=== PATIENT | male | born 1960 | race Caucasian/White ===

== ENCOUNTER 2016-11-18 09:12 | Emergency (ER) | payer MEDICAID ==
[2016-11-18 09:27] VITALS: BP 119/72
[2016-11-18] MEDS ORDERED: Furosemide 40 MG/4 ML VIAL IVPUSH ONE (10:00)
[2016-11-18] MEDS ORDERED: Sodium Polystyrene Sulfonate 15 GM/60 ML Susp 60 ML Bot PO ONE (11:11)
--- NOTE | 2016-11-18 11:11 | CR ---
INDICATION: Short of breath, weakness, CHF, atrial fibrillation. CHEST: AP portable upright view of the chest 11/18/2016 was compared with 12/07 and 06/11/2013, revealing unipolar pacemaker lead, which appears to be unchanged in position. The heart is enlarged. The aorta is tortuous and calcified. A definite consolidating pneumonia or effusion was not identified. Lungs appear to be hyperaerated, suggesting COPD. Overlying EKG leads are noted. IMPRESSION: 1. No definite acute process. 2. COPD. 3. ASHD with cardiomegaly and unipolar pacemaker unchanged in position. MTDD
--- NOTE | 2016-11-24 11:10 | ER ---
DATE SEEN: 11/18/2016 TIME SEEN: The patient was seen at 0925 hours. HISTORY OF PRESENT ILLNESS: This 56-year-old gentleman comes in with history of anorexia, weakness, shortness of breath, and wheezing. He has onset of atrial fibrillation 11/14/2016. This was converted. He had atrial fibrillation in [place] converted in 2016. He has an ICD and has not had recent defibrillator go off. He has a large abdominal hernia that has "gone bad". He has had edema 2+ lower extremities, with wheezing, chronic obstructive lung disease. Smokes 1 1/2 packs of cigarettes since he has been a teenager, 50 plus pack years of smoking. He had DuoNeb prior to arrival. It made a slight difference. PAST MEDICAL HISTORY: He has known diabetes, GERD, he is on potassium supplements, AAA with repair, cardiomyopathy, congestive heart failure, dyslipidemia, hypertension, peripheral vascular disease, aortic insufficiency, hiatus hernia, end-stage renal disease, and chronic low back pain. MEDICATIONS: 1. Warfarin 1.5 mg daily. 2. Tylenol. 3. Lasix 80 mg daily. 4. Ferrous sulfate. 5. Metoprolol succinate. 6. Metoprolol-XL 100 mg daily. 7. Omeprazole 20 mg daily. 8. Simvastatin 10 mg daily. 9. Sitagliptin 50 mg daily. 10.Metolazone as directed 2.5 mg. 11.Magnesium oxide 400 mg daily. 12.Lisinopril 2.5 mg daily. FAMILY HISTORY: Mother of myocardial infarction and father , age 81, with atrial fibrillation, diabetes, and congestive heart failure. Brother and sister ; brother had a AAA at age 54 in 2008. Sister of drug abuse at age 48. One sister had colon cancer. One brother of HIV. PHYSICAL EXAMINATION: VITAL SIGNS: Blood pressure 119/72, heart rate 95 and regular, respirations 20, and oxygen saturation 98%. GENERAL: Resting shortness of breath. He has marked [place] gra[place]'s feet. LUNGS: Has moderate rales in lungs. Coarse breath sounds. He has audible rales heard, but just the same without a stethoscope. Moderate accessory muscle use. Moderate tracheal tug. Mild intercostal retraction. No respiratory fatigue noted. No chest wall discomfort. HEART: S1 and S2. No murmur. No irregularity of rhythm. Heart rate 102. : Bladder scan demonstrates 172 mL. EXTREMITIES: Without edema. Decreased muscle mass noted to upper and lower extremities. LABORATORY STUDIES: Chest x-ray shows cardiomegaly but is less than it was on 12/07/2014 when he had congestive heart failure, myocardial infarction noted. EMERGENCY DEPARTMENT COURSE: Did flush with 40 mg IV push, 15 g of Kayexalate. He has elevated potassium. STACIA score +1 positive for congestive heart failure, +2 positive for hypertension, 0 for age, +2 for diabetes and peripheral neuropathy, and +2 for vascular, so it is at least a score of 6. For this reason, he is appropriately on his anticoagulants. White count is not elevated at 10,400, this alone not suggestive of pneumonia, PMNs 77, bands 5, 8 lymphocytes, and hemoglobin 14.2. The etiology for bandemia indeterminate. D-dimer was 1000. Sodium 130, potassium 5.6, chloride 95, CO2 of 25, BUN 46, creatinine 3.1, BUN and creatinine ratio 15, and reactive glucose elevation 193. AST 36, ALT 39. BNP is 2013. Urinalysis; rare bacteria. The patient has multiple problems. He has treated congestive heart failure. He has chronic obstructive lung disease with exacerbation. He has clubbing of his fingers. He has tracheal tug and accessory muscle use, which mirrors his chronic obstructive lung disease. The COPD seemed to improve with O2 and IV Lasix. He had wheeze that improved. The EKG showed lateral wall ischemia. T- wave inversion in lead I, III, V4, 5, 6, aVL was unchanged since 12/16/2014 and also T-waves isoelectric in lead II. Has new ST elevation in V1, 2, 3, mild. There is no evidence for myocardial infarction. Troponin is normal. He has mild atrial fibrillation that seems to be controlled with the medication. He is on Digitalis plus beta-jayro. Congestive heart failure, improved with the diuresis. He has elevated creatinine and BUN that reflect stage 4 acute kidney disease. The magnesium is appropriate, not elevated. He has chronic alcoholism with mild elevation of liver enzymes. The bandemia, etiology indeterminate. No suggestion of major infection. Discussed the patient's status with his doctor, Dr. Reid, and we felt that perhaps the patient's congestive heart failure might improve with using increasing hydralazine, but increasing Lasix might be problematic. Also he has a history of elevated potassium. Consequently, he will be started on Kayexalate 15 g b.i.d. for 3 days and follow up with a BMP on 11/21/2016. The patient is anticoagulated adequately. It was not felt that the patient had infection. I have spoken to the casing running machine tender, Deb Anderson. She is going to come back to pick him up and take him home today. The patient was markedly improved before he left. Also, Radha Marvin, [facility] is to follow up to have a blood test on Monday. Dr. Reid has been informed. He was concerned that the patient might have bladder outlet obstruction. We checked and ruled out bladder outlet obstruction. He did have 172 mL on bladder scan, and he is able to pass urine. UA was clear, urine protein 100, moderate occult blood, rare squamous epithelial cells, rare wbc's noted, rule out urinary tract infection. Most significant therapeutic intervention is his increased potassium. Follow up on Monday. He has previously had abdominal surgery in [facility] and has significant midline scar from the xiphoid to the symphysis, which reflects some mild diastasis. He has ICD, which is stable. His atrial fibrillation is under control. He has not had any firing recently. Diabetes is stable. Isosorbide was used to decrease his congestive heart failure and seemed to be helpful. If his pressure improved or if his status improved, perhaps even this could be increased to 60 mg from 30 mg. GERD. Previously documented TIA. AAA with cardiomyopathy, congestive heart failure, dyslipidemia, hypertension, pacemaker aortic insufficiency. /[id number] ALBERTINA/NAZARIO
--- NOTE | 2016-12-14 07:55 | ER ---
DATE SEEN: 11/18/2016 This 56-year-old man, who has had the following diagnoses; 1. Shortness of breath secondary to chronic obstructive pulmonary disease and exacerbation of congestive heart failure. 2. Coronary artery disease, status post myocardial infarction, atrial fibrillation, digitalized ICD placement, status post previous transient ischemic attack, diabetes, and abdominal aortic aneurysm. 3. Hypertension. 4. Gastroesophageal reflux disease. 5. Dyslipidemia. 6. Bandemia, etiology indeterminate. 7. Hyperkalemia, secondary to chronic kidney disease. Creatinine is 3.1. 8. Chronic kidney disease with history of bladder outlet obstruction. No evidence for bladder outlet obstruction today. Microhematuria, etiology possibly secondary to prostatism, large prostate. 9. Anticoagulation. He has a CHADS2 score of 6, positive atrial fibrillation. 10.Abdominal diastasis, etiology for this is a previous midline surgery performed at [facility], probable mesh placement for posterior mild diastasis. 11.Obesity. 12.Diabetes. /[id number] ALBERTINA/NAZARIO
== END 2016-11-18 12:05 | disposition home or self-care (01) ==
LOC: FB.ED 09:12
DX: J44.1 Chronic obstructive pulmonary disease with (acute) exacerbation (principal); E11.9 Type 2 diabetes mellitus without complications; K21.9 Gastro-esophageal reflux disease without esophagitis; K44.9 Diaphragmatic hernia without obstruction or gangrene; I13.2 Hypertensive heart and chronic kidney disease with heart failure and with stage 5 chronic kidney disease, or end stage renal disease; N18.6 End stage renal disease; Z79.899 Other long term (current) drug therapy; I50.9 Heart failure, unspecified; E78.5 Hyperlipidemia, unspecified; I73.9 Peripheral vascular disease, unspecified; M54.5 Low back pain; G89.29 Other chronic pain; Z79.01 Long term (current) use of anticoagulants; R68.3 Clubbing of fingers; I48.91 Unspecified atrial fibrillation; F10.20 Alcohol dependence, uncomplicated; R79.89 Other specified abnormal findings of blood chemistry; D72.825 Bandemia; E87.6 Hypokalemia; Z86.73 Personal history of transient ischemic attack (TIA), and cerebral infarction without residual deficits; Z95.0 Presence of cardiac pacemaker
CPT/HCPCS: 36415; 71010; 80053; 81001; 83735; 83880; 84484; 85025; 85379; 93005; 96374; 99284; J1940

== ENCOUNTER 2016-11-20 03:35 | Emergency (ER) | payer MEDICAID ==
[2016-11-20] MEDS ORDERED: Sodium Chloride 0.9% 10 ML Syringe FLUSH PRN (04:18)
[2016-11-20] MEDS ORDERED: Furosemide 40 MG/4 ML VIAL IVPUSH ONE (05:20)
--- NOTE | 2016-11-20 06:09 | ER ---
DATE SEEN: 11/20/2016 CHIEF COMPLAINT: Decreased urine output. HISTORY OF PRESENT ILLNESS: This is a 56-year-old male, who complains of decreased urine output since yesterday. He denies any pain. He has a history of congestive heart failure, chronic kidney disease, atrial fibrillation, previously been exacerbated and he was here in the ER just a day ago with shortness of breath. His dose of Lasix was increased to 120 mg in 2 divided doses daily. Today, he has no chest pain or shortness of breath. He has chronic leg swelling. REVIEW OF SYSTEMS: No fever or chills. No headaches. MEDICATIONS: Reviewed. ALLERGIES: Reviewed. SOCIAL HISTORY: Reviewed. Please see the nurse's notes. PHYSICAL EXAMINATION: VITAL SIGNS: Blood pressure is normal. Pulse 121, temperature 95.0. EAR, NOSE, AND THROAT: Negative. NECK: Mild JVD. CARDIOVASCULAR: Irregular. He has pedal edema. ABDOMEN: Distended with a hernia on the right umbilical area, easily reducible. LUNGS: Wheezing and rales in the bases. LABORATORY DATA: White cell count is normal. Sodium 133, potassium 3.8, creatinine 3.0, BNP 1740. IMPRESSION: 1. Congestive heart failure exacerbation. 2. Chronic renal disease. 3. Atrial fibrillation. PLAN: 40 mg of Lasix x1 dose. Discontinue Kayexalate. Follow up with PCP on Monday. Return to the ED with worsening symptoms. /[id number] SANTIAGO/NAZARIO
[2016-11-20 06:47] VITALS: BP 116/73
== END 2016-11-20 06:40 | disposition home or self-care (01) ==
LOC: FB.ED 03:35
DX: I50.9 Heart failure, unspecified (principal); N18.9 Chronic kidney disease, unspecified; I48.91 Unspecified atrial fibrillation; R39.198 Other difficulties with micturition; K42.9 Umbilical hernia without obstruction or gangrene
CPT/HCPCS: 36415; 51798; 80048; 83880; 85025; 96374; 99284; J1940; J7050

== ENCOUNTER 2016-12-01 13:06 | Observation (INO) | payer MEDICAID ==
[2016-12-01] MEDS ORDERED: Albuterol/Ipratropium 3.0-0.5 MG/3 ML Neb Soln NEB ONE (13:17)
[2016-12-01] MEDS ORDERED: Furosemide 40 MG/4 ML VIAL IVPUSH ONE ×2 (13:19→16:47)
--- NOTE | 2016-12-01 13:39 | EDM.PDOC ---
[id number]: SOB, FLUID BUILD UP Time Seen by Provider: 12/01/16 13:06 Source: Reports: Patient, Family, custodial records, RN History Limitations: Reports: Physical impairment - History of Present Illness INITIAL COMMENTS - FREE TEXT/NARRATIVE: 56 years old w m with a history of CHF, abd. wall hernia, morbid obesity, come the the ed with his caregiver to the ed due to "fluids building up" bilat lower extremities and ABDOMEN. Pt is on laxix with minimal improvement. Pt dose not complain of SOB at rest in sitting position. No C/P Symptom Onset Date: 11/26/16 Symptom Onset Time: 08:00 Timing/Duration: Reports: Day(s):, Getting worse Severity: moderate Location, General: Reports: chest, abdomen, lower extremity, left, lower extremity, right Quality: Reports: Dull, Other (Fullness) - Related Data Allergies/ADRs: Allergies Allergy/AdvReac Type Severity Reaction Status Date / Time No Known Allergies Allergy Verified 12/01/16 15:48 Home Meds: Home Meds Simvastatin [Zocor] 10 mg PO BEDTIME 06/09/13 [History] Isosorbide Mononitrate [Imdur] 30 mg PO DAILY #90 tab.er 06/14/13 [Rx] Ferrous Sulfate 325 mg PO WITHBREAKFAST 12/07/14 [History] Furosemide [Lasix] 80 mg PO BID@08,14 12/07/14 [History] Metoprolol Succinate [Toprol XL] 200 mg PO DAILY@0800 12/07/14 [History] Omeprazole 20 mg PO DAILY 12/07/14 [History] SitaGLIPtin [Januvia] 50 mg PO DAILY 12/07/14 [History] Magnesium Oxide [Magnesium] 400 mg PO DAILY 11/18/16 [History] Warfarin [Coumadin] 1.5 mg PO DAILY 11/18/16 [History] Albuterol/Ipratropium [DuoNeb 3.0-0.5 MG/3 ML] 1 inhalation IH QID 11/20/16 [ History] Digoxin [Digoxin] 125 mcg PO Q48H 11/20/16 [History] Metoprolol Succinate 100 mg PO DAILY@1700 11/20/16 [History] hydrALAZINE HCl [Hydralazine HCl] 10 mg PO BIDMEALS 11/20/16 [History] Calcitriol [Rocaltrol] 0.25 mcg PO MOWEFR 12/01/16 [History] Cholecalciferol (Vitamin D3) [Vitamin D3] 1,000 unit PO DAILY 12/01/16 [History] Metolazone [Zaroxolyn] 1 tab PO ASDIRECTED PRN 12/01/16 [History] Past Medical History Cardiovascular History: Reports: Afib, Aneurysm, CAD, Heart Failure, High cholesterol, Hypertension Other Cardiovascular History: converted on metoprolol Respiratory History: Reports: COPD Other Respiratory History: Uses O2 @ hs. 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 Endocrine/Metabolic History: Reports: Diabetes, type II Hematologic History: Reports: Iron deficiency - Infectious Disease History Infectious Disease History: Reports: Chicken pox, Measles, Mumps - Past Surgical History HEENT Surgical History: Reports: Cataract surgery Other HEENT Surgeries/Procedures: bilat cataract surgery Cardiovascular Surgical History: Reports: AAA repair GI Surgical History: Reports: Hernia repair/other Male Surgical History: Reports: None Social & Family History - Family History Family Medical History: Noncontributory - Tobacco Use Smoking Status *Q: Current Every Day Smoker Years of Tobacco use: 40 Packs/Tins Daily: 0.5 Used Tobacco, but Quit: No Second Hand Smoke Exposure: No - Caffeine Use Caffeine Use: Reports: Coffee, Soda - Alcohol Use Days Per Week of Alcohol Use: 0 - Recreational Drug Use Recreational Drug Use: No ED ROS GENERAL - Review of Systems Review Of Systems: See Below Constitutional: Reports: weakness, weight gain HEENT: Reports: No symptoms Respiratory: Reports: Shortness of Breath Cardiovascular: Reports: Dyspnea on exertion, Edema, Orthopnea, Palpitations Endocrine: Reports: no symptoms GI/Abdominal: Reports: Abdominal pain (chronic) : Reports: no symptoms Musculoskeletal: Reports: other (legswelling) Skin: Reports: no symptoms Neurological: Reports: No Symptoms Psychiatric: Reports: No symptoms Hematologic/Lymphatic: Reports: no symptoms Immunologic: Reports: no symptoms ED EXAM, GENERAL - Physical Exam Exam: See Below Exam Limited By: Physical impairment General Appearance: alert, WD/WN, moderate distress Eye Exam: bilateral eye: normal inspection Ears: normal external exam, normal canal Ear Exam: bilateral ear: auricle normal Nose: normal inspection, normal mucosa Throat/Mouth: Normal lips, Normal oropharynx Head: atraumatic, normocephalic Neck: normal inspection, supple, non-tender, full range of motion Respiratory/Chest: respiratory distress (mild), wheezing Cardiovascular: JVD, irregularly irregular GI/Abdominal: normal bowel sounds, distended (abdominal wall hernia) (Male) Exam: Deferred Rectal (Males) Exam: Deferred Back Exam: decreased range of motion, other (Anasarca) Extremities: pedal edema, slow capillary refill, leg pain, limited range of motion Neurological: alert, oriented, CN II-XII intact Psychiatric: normal affect, normal mood Skin Exam: Warm, Dry, Intact, Normal color Lymphatic: no adenopathy EKG INTERPRETATION EKG Date: 12/01/16 Time: 15:15 Rate (beats/min): 83 [place]: normal P-wave: absent QRS: normal ST-T: normal QT: normal Comparison: NA - no prior EKG Course - Vital Signs Text/Narrative:: 56 years old w m with a history of CHF, abd. wall hernia, morbid obesity, come the the ed with his caregiver to the ed due to "fluids building up" bilat lower extremities and ABDOMEN. Pt is on lasix with minimal improvement. Pt dose not complain of SOB at rest in sitting position. No C/P, was seen by the [facility]. 2-3 days ago PE: Exp wheezes, abd. wall hernia(old) pitting edema lower extr up to lower abdomen, anasarka Labs: Cr. 2.9, BUN 65 Na 122. INR 2.09 (in warfarin) Imaging: CXR: CHF with enlarged HS Impression: CHF, A fib, Abd. wall hernia, Cardiac asthma, PVD Tx: Duoneb, Lasix. Reexam: Minimally improved Consultation: Dr. Stubbs acceptd the pt for admission/Observation. Plan: Admit for OBS to telemetry Addendum: Dr. Cantu recommended now to transfere to patient to [facility] Consultation: Dr. Lzeama, Hospitalist, accepted the pt for transfer and further care Plan: Transfer to [facility] by EMS Last Recorded V/S: Last Vital Signs Temp 36.9 C 12/01/16 17:54 Pulse 97 12/01/16 17:54 Resp 20 12/01/16 17:54 BP 116/69 12/01/16 17:54 Pulse Ox 96 12/01/16 17:54 - Orders/Labs/Meds Labs: Laboratory Tests 12/01/16 12/01/16 12/01/16 Range/Units 13:25 13:25 13:25 WBC 8.3 (4.5-12.0) X10-3/uL RBC 5.13 (4.30-5.75) x10(6)uL Hgb 14.0 (11.5-15.5) g/dL Hct 42.6 (30.0-51.3) % MCV 83.0 (80-96) fL MCH 27.3 L (27.7-33.6) pg MCHC 32.8 (32.2-35.4) g/dL RDW 16.5 H (11.5-15.5) % Plt Count 190 (125-369) X10(3)uL MPV 10.5 H (7.4-10.4) fL Add Manual Diff Yes Neutrophils % (Manual) 72 (46-82) % Band Neutrophils % 1 (0-6) % Lymphocytes % (Manual) 21 (13-37) % Monocytes % (Manual) 6 (4-12) % Anisocytosis Few PT 21.0 H (8.7-11.1) INR 2.05 H (0.89-1.13) Sodium 122 L (135-145) mmol/L Potassium 4.2 (3.5-5.3) mmol/L Chloride 90 L (100-110) mmol/L Carbon Dioxide 25 (23-29) mmol/L BUN 62 H (5-20) mg/dL Creatinine 2.9 H* (0.6-1.3) mg/dL Est Cr Clr Drug Dosing TNP Estimated GFR (MDRD) 22 L (>60) BUN/Creatinine Ratio 21.4 H (9-20) Glucose 162 H (80-116) mg/dL Calcium 8.5 L (8.6-10.2) mg/dL Troponin I (0.02-0.06) NG/ML B-Natriuretic Peptide (0-100) pg/mL Digoxin (0.8-2.0) ng/mL 12/01/16 12/01/16 12/01/16 Range/Units 13:25 13:25 13:25 WBC (4.5-12.0) X10-3/uL RBC (4.30-5.75) x10(6)uL Hgb (11.5-15.5) g/dL Hct (30.0-51.3) % MCV (80-96) fL MCH (27.7-33.6) pg MCHC (32.2-35.4) g/dL RDW (11.5-15.5) % Plt Count (125-369) X10(3)uL MPV (7.4-10.4) fL Add Manual Diff Neutrophils % (Manual) (46-82) % Band Neutrophils % (0-6) % Lymphocytes % (Manual) (13-37) % Monocytes % (Manual) (4-12) % Anisocytosis PT (8.7-11.1) INR (0.89-1.13) Sodium (135-145) mmol/L Potassium (3.5-5.3) mmol/L Chloride (100-110) mmol/L Carbon Dioxide (23-29) mmol/L BUN (5-20) mg/dL Creatinine (0.6-1.3) mg/dL Est Cr Clr Drug Dosing Estimated GFR (MDRD) (>60) BUN/Creatinine Ratio (9-20) Glucose (80-116) mg/dL Calcium (8.6-10.2) mg/dL Troponin I 0.04 (0.02-0.06) NG/ML B-Natriuretic Peptide 2550 H* (0-100) pg/mL Digoxin 1.2 (0.8-2.0) ng/mL Meds: Medications Discontinued Medications Generic Name Dose Route Start Last Admin Trade Name Freq PRN Reason Stop Dose Admin Albuterol/Ipratropium 3 ml 12/01/16 13:17 12/01/16 13:50 Duoneb 3.0-0.5 Mg/3 Ml NEB 12/01/16 13:18 3 ml ONETIME ONE Administration Furosemide 20 mg 12/01/16 13:19 12/01/16 14:38 Lasix IVPUSH 12/01/16 13:20 20 mg NOW ONE Administration Furosemide 40 mg 12/01/16 18:00 Lasix IVPUSH DAILY JENNI Furosemide 20 mg 12/01/16 16:47 12/01/16 17:08 Lasix IVPUSH 12/01/16 16:48 20 mg NOW ONE Administration Ondansetron HCl 4 mg 12/01/16 15:00 Zofran IV Q4H PRN Nausea/Vomiting Warfarin Sodium 1.5 mg 12/01/16 16:00 12/01/16 17:09 Coumadin PO 1.5 mg 1600 JENNI Administration Departure - Departure Time of Disposition: 15:30 Disposition: DC/Tfer to Critical Access [facility] Reason for Transfer *Q: Other (no specialist available) Condition: fair Clinical Impression: CHF (congestive heart failure) Qualifiers: Congestive heart failure type: unspecified congestive heart failure type Congestive heart failure chronicity: chronic Qualified Code(s): I50.9 - Heart failure, unspecified
[2016-12-01] MEDS ORDERED: Ondansetron 4 MG/2 ML SDV IV PRN (15:00)
[2016-12-01] MEDS ORDERED: Warfarin 3 MG Tab PO SCH (16:00)
[2016-12-01 17:56] VITALS: BP 116/69
[2016-12-01] MEDS ORDERED: Furosemide 40 MG/4 ML VIAL IVPUSH SCH (18:00)
--- NOTE | 2016-12-02 08:38 | CR ---
CHEST: An AP portable upright view of the chest 12/01/2016, compared with 11/17 and 12/07/2014 revealed the heart to be enlarged. The aorta is tortuous and calcified. Findings are compatible with COPD with flattened diaphragm leaves and hyperaeration. Upper lung field pulmonary vasculature is slightly prominent, suggesting the possibility of mild or early CHF additionally. A definite active infiltrate or effusion was not identified. IMPRESSION: 1. Mild or early CHF with ASHD and cardiomegaly. 2. Probable COPD. MTDD
--- NOTE | 2016-12-08 08:26 | HP ---
ADMISSION DATE: 12/01/2016 Please note that the patient was admitted by Dr. Jimenez. I did not get a chance to see him before Dr. Jimenez decided to transfer him to [place]. /[id number] SANTIAGO/NAZARIO
== END 2016-12-01 18:16 ==
LOC: FB.ED 13:06 → FB.MS 15:01
PROVIDERS: ADMIT Family Medicine; ATTEND Family Medicine
DX: I50.9 Heart failure, unspecified (principal); I25.10 Atherosclerotic heart disease of native coronary artery without angina pectoris; I12.0 Hypertensive chronic kidney disease with stage 5 chronic kidney disease or end stage renal disease; I51.7 Cardiomegaly; I48.91 Unspecified atrial fibrillation; E78.00 Pure hypercholesterolemia, unspecified; J44.9 Chronic obstructive pulmonary disease, unspecified; K21.9 Gastro-esophageal reflux disease without esophagitis; Z86.73 Personal history of transient ischemic attack (TIA), and cerebral infarction without residual deficits; E11.40 Type 2 diabetes mellitus with diabetic neuropathy, unspecified; D50.9 Iron deficiency anemia, unspecified; F17.210 Nicotine dependence, cigarettes, uncomplicated; E66.01 Morbid (severe) obesity due to excess calories; Z79.01 Long term (current) use of anticoagulants; Z79.899 Other long term (current) drug therapy; Z98.890 Other specified postprocedural states
CPT/HCPCS: 36415; 71010; 80048; 80162; 83880; 84484; 85025; 85610; 93005; 94664; 96374; 99285; A9270; J1940; J7620; 96376; G0378

== ENCOUNTER 2016-12-26 12:22 | Emergency (ER) | payer MEDICAID ==
[2016-12-26] MEDS ORDERED: Sodium Chloride 0.9% 1,000 ML IV SCH (13:45)
[2016-12-26] MEDS ORDERED: Potassium Chloride 10% 20 MEQ/15 ML Soln 15 ML UD Cup PO SCH (13:45)
[2016-12-26] MEDS: Potassium Chloride 10% 20 MEQ/15 ML Soln 15 ML UD Cup PO SCH ×2 (14:25→15:22)
[2016-12-26 15:40] VITALS: BP 112/64
--- NOTE | 2016-12-27 13:35 | ER ---
DATE SEEN: 12/26/2016 TIME SEEN: The patient was seen at 1225 hours. CHIEF COMPLAINT: Diarrhea and low potassium. HISTORY OF PRESENT ILLNESS: The patient was seen in the clinic today, had potassium of 2.7, was sent to the ED for further potassium therapy. On 12/24/2016, the patient had a potassium of 3.7. His medication was increased, metolazone was started at 2.5 mg on 12/21/2016, 12/22/2016, and 12/24/2016. Dr. Reid is concerned about his congestive heart failure and he has a borderline existence with slightly elevated creatinine. His history is significant for having aortic aneurysm, which required repair. He states he had a graft done and this affected his kidneys and caused spinal artery circulation compromise. Consequently he cannot use his lower extremities and he has chronic renal disease after the ruptured aortic aneurysm repair. He has a chronic mass in his right lower quadrant and right middle quadrant that has been present after attempted repair with hernia mesh surgery. Herniorhaphy was unsuccessful, so he has this large protrusion of the abdominal wasll - almost 6- 10 inches from the right lower abdomen. PAST MEDICAL HISTORY: Significant for diabetes, chronic kidney disease, TIA, pacemaker placement, and congestive heart failure. CURRENT MEDICATIONS: Magnesium - that has caused diarrhea, so he stopped using it, warfarin 1.5 mg daily, Zocor 10 mg daily, sitagliptin 50 mg daily, omeprazole 20 mg b.i.d., metoprolol succinate 200 mg in the morning at 0800 hours and 100 mg at 1700 hours. Metolazone-Zaroxolyn 2.5 mg p.r.n. which he has been taking daily since the , , and 24 of December, and . Ferrous sulfate 250 mg daily, vitamin D 1000 units daily, calcitriol 0.25 mcg Monday, Monday, and Monday. DuoNeb p.r.n., Bumex 2 mg b.i.d., and lactobacillus daily. REVIEW OF SYSTEMS: Patient denies compromise in his vision, but he has decreased hearing. No difficulty swallowing, mild shortness of breath. He denies chest pain, irregular heartbeat, abdominal discomfort. He has this mass in the right abdomen, weakness, and hernia, but it does not bother him. Bowel movements have been appropriate. No recent diarrhea. He has more recently onset of shortness of breath, dyspnea on exertion, and ankle swelling. 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 His borderline congestive heart failure requires very careful titration of his diuretics. Currently, he is supposed to take potassium 2.5 mg p.r.n., but he is reluctant to take it daily because he has so much swelling in his ankles. He notes this has made a very dramatic difference in his swelling of his ankles. He feels much better and has less pressure in his ankles. PHYSICAL EXAMINATION: GENERAL: Alert man who has moderate [place]'s feet (old smoker) and has moderate tanned skin and he is somewhat angry. I asked why he was angry, he said he did not expect to come to be seen today or go in to the clinic. He "thought he was doing so well" he did not want to be seen by a doctor today. He seemed to get over this once he could talk about it. VITAL SIGNS: Blood pressure 118/64, heart rate 104 regular rhythm sitting, respirations 18, 100% oxygen saturation room air, 36.3 degree centigrade. LUNGS: There are occasional rales in his lungs. Not extensive. HEART: S1 and S2. No murmur. Regular rate and rhythm. ABDOMEN: Soft. Marked protruding bulge in the right abdomen, 10-15 cm beyond the abdominal wall surface and is 20 cm to 30 cm in diameter. Nontender. Bowel sounds present. No bruits noted. LOWER EXTREMITIES: Without pedal edema. Deep tendon reflexes absent in lower extremities, 1+ in upper extremities. LABORATORY FINDINGS: White count 7400, PMNs 89, bands 1, lymphocytes 5, monos 2, atypical lymphocytes 2, eosinophils 1%, hemoglobin 13.5, platelets 156,000 (low normal). INR 1.97 (he is on anticoagulant - warfarin). He has hyponatremia, hypokalemia, and hypochloremia with elevated CO2 that is compensatory to his chronic lung disease, and probably hypercarbia. Sodium 129, potassium 2.9, chloride 86, CO2 of 36, BUN 66, creatinine 3.4 (chronic elevated creatinine). GFR is 19, BUN and creatinine ratio 19, glucose 150, calcium 8.5, phosphorus 5.0 (the latter reflects his renal disease, normal is 3.0-4.6). BNP is 1760. When I told him this, he said this is good, because it has been elevated to as much as 2600 or more at 2800 on a previous occasions. Total protein 5.0 and albumin 2.6. ASSESSMENT: 1. Hypokalemia, probably secondary to recent addition of metolazone for his congestive heart failure. 2. Congestive heart failure, cardiomegaly, and dramatic diuresis decreased his weight on metolazone, but a dramatic drop in his potassium from 3.7 on 12/24/2016 to 2.7 today. 3. Congestive heart failure with actually improvement on the base of his laboratory studies and his recall. 4. Chronic kidney disease with loss of albumin, albuminuria. 5. No evidence for abdominal syncope, abdominal activity, or anaerobic metabolism because he has lactic acid of 1.1. 6. INR is just below therapeutic, but adequate at 1.97. No plans to change this warfarin doses. 7. Mild neutrophilia, etiology indeterminate. No evidence for any significant illness. PLAN: The patient is under-hydrated, but still has congestive heart failure. Initially plans were to place him on IV fluids, however, with his BUN elevation, it would probably contribute to more congestive heart failure. The patient's status was discussed with Dr. Reid. Plan is to continue with metolazone one tab of 2.5 mg Monday, Monday, and Monday and add potassium supplement 40 mEq daily. Follow up with Dr. Reid in a week. ADDITIONAL COMMENT: The patient had been on potassium supplement, but this resulted in potassium elevation. Presently he now has hypokalemia because of metolazone. Add potassium. This will need to be watched closely since he has chronic kidney disease and there is a risk of his potassium being driven up again. OTHER DIAGNOSES: Large incisional hernia, right abdomen. Diabetes. Electrolyte abnormalities, see note above and chronic kidney disease. /[id number] ALBERTINA/NAZARIO FELICIANO
== END 2016-12-26 15:35 | disposition home health service (06) ==
LOC: FB.ED 12:22
DX: E87.6 Hypokalemia (principal); I50.9 Heart failure, unspecified; I51.7 Cardiomegaly; N18.9 Chronic kidney disease, unspecified; E11.9 Type 2 diabetes mellitus without complications; D72.0 Genetic anomalies of leukocytes; Z86.73 Personal history of transient ischemic attack (TIA), and cerebral infarction without residual deficits
CPT/HCPCS: 36415; 80053; 83605; 83735; 83880; 84100; 85025; 85610; 99285; A9270; J7040

== ENCOUNTER 2017-02-15 12:40 | Emergency (ER) | payer MEDICAID ==
--- NOTE | 2017-02-15 13:19 | EDM.PDOC ---
ED HPI GENERAL MEDICAL PROBLEM - General Chief Complaint: General Stated Complaint: LOW MAGNESIUM AND POTASSIUM Time Seen by Provider: 02/15/17 13:14 Source of Information: Reports: Patient, Provider History Limitations: Reports: No Limitations - History of Present Illness INITIAL COMMENTS - FREE TEXT/NARRATIVE: 56-year-old gentleman with past medical history significant for CKD stage IV on chronic diuretics. The patient was sent to the emergency room after he was found to have severe hypomagnesemia and hypokalemia. Patient reports feeling very weak but denied any chest pain, shortness of breath, abdominal pain, nausea , vomiting or diarrhea. He continues to have bilateral lower extremity swelling. Was sent to the emergency room for further evaluation. Onset: Gradual, Unknown/Unsure Duration: Week(s):, Chronic Severity: Moderate Associated Symptoms: Reports: Weakness (vague generalized weakness) - Related Data Allergies Allergy/AdvReac Type Severity Reaction Status Date / Time No Known Allergies Allergy Verified 02/15/17 12:50 Home Meds: Home Meds Simvastatin [Zocor] 10 mg PO DAILY@1700 06/09/13 [History] Isosorbide Mononitrate [Imdur] 30 mg PO DAILY #90 tab.er 06/14/13 [Rx] Ferrous Sulfate 325 mg PO TIDMEALS 12/07/14 [History] Metoprolol Succinate [Toprol XL] 200 mg PO DAILY@0800 12/07/14 [History] Omeprazole 20 mg PO BID 12/07/14 [History] SitaGLIPtin [Januvia] 25 mg PO DAILY 12/07/14 [History] Warfarin [Coumadin] 1.5 mg PO ASDIRECTED 11/18/16 [History] Metoprolol Succinate 100 mg PO DAILY@1700 11/20/16 [History] Calcitriol [Rocaltrol] 0.25 mcg PO MOWEFR 12/01/16 [History] Cholecalciferol (Vitamin D3) [Vitamin D3] 1,000 unit PO DAILY 12/01/16 [History] Metolazone [Zaroxolyn] 2.5 tab PO ASDIRECTED PRN 12/01/16 [History] Albuterol/Ipratropium [DuoNeb 3.0-0.5 MG/3 ML] 3 ml INH QID 12/26/16 [History] Bumetanide [Bumex] 2 mg PO BID@0800,1700 12/26/16 [History] L Acidophil/B Lactis/B Longum [Florajen3] 1 cap PO DAILY 12/26/16 [History] Sucralfate [Carafate] 1 gm PO BID PRN 12/26/16 [History] Magnesium Chloride [Mag-64] 128 mg PO BID 02/15/17 [History] Past Medical History HEENT History: Reports: Impaired Vision Cardiovascular History: Reports: Afib, Aneurysm, CAD, Heart Failure, High Cholesterol, Hypertension Other Cardiovascular History: converted on metoprolol Respiratory History: Reports: COPD Other Respiratory History: Uses O2 @ hs. 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 Endocrine/Metabolic History: Reports: Diabetes, Type II Hematologic History: Reports: Iron Deficiency, Other (See Below) Other Hematologic History: is on Coumadin - Infectious Disease History Infectious Disease History: Reports: Chicken Pox, Measles, Mumps - Past Surgical History HEENT Surgical History: Reports: Cataract Surgery GI Surgical History: Reports: Hernia Repair/Other Social & Family History - Family History Family Medical History: Noncontributory - Tobacco Use Smoking Status *Q: Current Every Day Smoker Years of Tobacco use: 40 Packs/Tins Daily: 0.5 Used Tobacco, but Quit: No Second Hand Smoke Exposure: Yes - Caffeine Use Caffeine Use: Reports: Coffee - Alcohol Use Days Per Week of Alcohol Use: 0 - Recreational Drug Use Recreational Drug Use: No ED ROS GENERAL - Review of Systems Review Of Systems: ROS reveals no pertinent complaints other than HPI. Constitutional: Reports: Weakness ED EXAM, GENERAL - Physical Exam Exam: See Below Exam Limited By: No Limitations General Appearance: Alert, No Apparent Distress Eye Exam: Bilateral Eye: Normal Inspection, PERRL Ears: Normal External Exam, Normal Canal, Normal TMs Nose: Normal Inspection, Normal Mucosa, No Blood Throat/Mouth: Normal Inspection, Normal Lips, Normal Oropharynx Head: Atraumatic, Normocephalic Respiratory/Chest: No Respiratory Distress, Lungs Clear, No Accessory Muscle Use Cardiovascular: No JVD, No Rub, Tachycardia GI/Abdominal: Normal Bowel Sounds, Non-Tender, No Organomegaly, No Abnormal Bruit, Other (Hernia ) Back Exam: Normal Inspection, Full Range of Motion Extremities: Normal Inspection, Normal Range of Motion, Non-Tender, Other ( Bilateral Lower extremity edema) Neurological: Alert, Oriented, CN II-XII Intact, Normal Cognition, Normal Reflexes Psychiatric: Normal Affect, Normal Mood Skin Exam: Warm, Dry Lymphatic: No Adenopathy Course - Vital Signs Last Recorded V/S: Last Vital Signs Temp 36.7 C 02/15/17 15:45 Pulse 106 H 02/15/17 15:45 Resp 20 02/15/17 15:45 BP 105/62 02/15/17 15:45 Pulse Ox 97 02/15/17 15:45 - Orders/Labs/Meds Orders: Active Orders 24 hr Category Date Time Status EKG Documentation Completion [RC] ASDIRECTED Care 02/15/17 13:05 Active EKG 12 Lead [EK] Routine Ther 02/15/17 13:04 Ordered Labs: Laboratory Tests 02/15/17 02/15/17 02/15/17 Range/Units 13:14 13:14 13:14 WBC 9.2 (4.5-12.0) X10-3/uL RBC 4.59 (4.30-5.75) x10(6)uL Hgb 12.8 (11.5-15.5) g/dL Hct 38.1 (30.0-51.3) % MCV 83.1 (80-96) fL MCH 27.9 (27.7-33.6) pg MCHC 33.6 (32.2-35.4) g/dL RDW 16.6 H (11.5-15.5) % Plt Count 177 (125-369) X10(3)uL MPV 9.5 (7.4-10.4) fL Add Manual Diff Yes Neutrophils % (Manual) 82 (46-82) % Lymphocytes % (Manual) 8 L (13-37) % Monocytes % (Manual) 8 (4-12) % Eosinophils % (Manual) 2 (0-5) % Anisocytosis Few Sodium 134 L (135-145) mmol/L Potassium 3.2 L (3.5-5.3) mmol/L Chloride 94 L D (100-110) mmol/L Carbon Dioxide 31 H (23-29) mmol/L BUN 79 H D (5-20) mg/dL Creatinine 3.1 H* (0.6-1.3) mg/dL Est Cr Clr Drug Dosing TNP Estimated GFR (MDRD) 21 L (>60) BUN/Creatinine Ratio 25.5 H (9-20) Glucose 193 H (80-116) mg/dL Calcium 8.0 L (8.6-10.2) mg/dL Magnesium 1.3 L (1.8-2.5) mg/dL Total Bilirubin 0.8 (0.1-1.3) mg/dL AST 15 D (5-27) IU/L ALT 16 D (14-26) IU/L Alkaline Phosphatase 115 H (56-112) IU/L Total Protein 4.9 L (6.0-8.0) g/dL Albumin 2.3 L (3.5-5.2) g/dL Globulin 2.6 g/dL Albumin/Globulin Ratio 0.9 Meds: Medications Discontinued Medications Generic Name Dose Route Start Last Admin Trade Name Freq PRN Reason Stop Dose Admin Digoxin 125 mcg 02/15/17 14:23 02/15/17 14:38 Lanoxin IVPUSH 02/15/17 14:24 125 mcg ONETIME ONE Administration Diltiazem HCl 5 mg 02/15/17 14:20 Diltiazem IVPUSH 02/15/17 14:21 ONETIME ONE Sodium Chloride 1,000 mls @ 50 mls/hr 02/15/17 13:30 02/15/17 13:52 Normal Saline IV 50 mls/hr ASDIRECTED [facility] Administration Magnesium Sulfate 2 gm/ Premix 50 mls @ 50 mls/hr 02/15/17 14:30 02/15/17 14: 29 IV 02/15/17 15:29 50 mls/hr ONETIME ONE Administration Potassium Chloride 40 meq 02/15/17 14:06 02/15/17 14:24 Klor-Con M20 PO 02/15/17 14:07 40 meq ONETIME ONE Administration Departure - Departure Time of Disposition: 15:38 Disposition: Home, Self-Care 01 Clinical Impression: Hypokalemia, Hypomagnesemia - Discharge Information Instructions: Hypokalemia Referrals: Bola Reid MD [Primary Care Provider] - Forms: ED Department Discharge Additional Instructions: Follow with PCP in 3-5 days Return if symptoms worsen Call your Physician or Return to Emergency Department if: * Your condition worsens in any way. * You develop fever greater than 100.4. * You have vomitting that does not stop with medications. * You have pain that is not controlled with medications. - Problem List & Annotations (1) Hypokalemia SNOMED Code(s): 58365836 Code(s): E87.6 - HYPOKALEMIA Status: Acute (2) Hypomagnesemia SNOMED Code(s): 100413961 Code(s): E83.42 - HYPOMAGNESEMIA Status: Acute - My Orders Last 24 Hours: My Active Orders 02/15/17 13:04 EKG 12 Lead [EK] Routine 02/15/17 13:05 EKG Documentation Completion [RC] ASDIRECTED - Assessment/Plan Last 24 Hours: My Active Orders 02/15/17 13:04 EKG 12 Lead [EK] Routine 02/15/17 13:05 EKG Documentation Completion [RC] ASDIRECTED
[2017-02-15] MEDS ORDERED: Sodium Chloride 0.9% 1,000 ML IV SCH (13:30)
[2017-02-15] MEDS ORDERED: Potassium Chloride 20 MEQ Tab.ER PO ONE (14:06)
[2017-02-15] MEDS ORDERED: Diltiazem 50 MG/10 ML SDV IVPUSH ONE (14:08)
[2017-02-15] MEDS ORDERED: Diltiazem 25 MG/5 ML SDV IVPUSH ONE (14:20)
[2017-02-15] MEDS ORDERED: Digoxin 500 MCG/2 ML Amp IVPUSH ONE (14:23)
[2017-02-15] MEDS ORDERED: Magnesium Sulfate/Water 2 GM in Premix Bag 1 BAG IV ONE (14:30)
[2017-02-15 15:54] VITALS: BP 105/62
== END 2017-02-15 15:52 | disposition home or self-care (01) ==
LOC: FB.ED 12:40
DX: E83.42 Hypomagnesemia (principal); E87.6 Hypokalemia; H54.7 Unspecified visual loss; I48.91 Unspecified atrial fibrillation; I11.0 Hypertensive heart disease with heart failure; I25.10 Atherosclerotic heart disease of native coronary artery without angina pectoris; I50.9 Heart failure, unspecified; E78.00 Pure hypercholesterolemia, unspecified; J44.9 Chronic obstructive pulmonary disease, unspecified; K21.9 Gastro-esophageal reflux disease without esophagitis; E11.9 Type 2 diabetes mellitus without complications; F17.210 Nicotine dependence, cigarettes, uncomplicated; Z79.899 Other long term (current) drug therapy; Z79.01 Long term (current) use of anticoagulants
CPT/HCPCS: 36415; 80053; 83735; 85025; 93005; 96361; 96365; 99285; A9270; J1160; J3475; J7040

== ENCOUNTER 2017-03-14 22:36 | Emergency (ER) | payer MEDICAID ==
[2017-03-14] MEDS ORDERED: Sodium Chloride 0.9% 10 ML Syringe FLUSH PRN (22:41)
[2017-03-14] MEDS ORDERED: Magnesium Sulfate/Water 2 GM in Premix Bag 1 BAG IV ONE (22:41)
--- NOTE | 2017-03-14 22:47 | EDM.PDOC ---
ED HPI GENERAL MEDICAL PROBLEM - General Chief Complaint: Genitourinary Problem Stated Complaint: IV FLUIDS Time Seen by Provider: 03/14/17 22:46 Source of Information: Reports: Patient, Old Records History Limitations: Reports: No Limitations - History of Present Illness INITIAL COMMENTS - FREE TEXT/NARRATIVE: Matt returns to [facility] ED with a report from [facility] regarding low Mg 0.9 drawn yesterday. He has CKD IV and has had issues with low K and low Mg in the past. He did not bring any records with him. He is hemodyamically stable at this time , without tetany. - Related Data Allergies Allergy/AdvReac Type Severity Reaction Status Date / Time No Known Allergies Allergy Verified 03/14/17 23:17 Home Meds: Home Meds Simvastatin [Zocor] 10 mg PO DAILY@1700 06/09/13 [History] Isosorbide Mononitrate [Imdur] 30 mg PO DAILY #90 tab.er 06/14/13 [Rx] Ferrous Sulfate 325 mg PO TIDMEALS 12/07/14 [History] Metoprolol Succinate [Toprol XL] 200 mg PO DAILY@0800 12/07/14 [History] Omeprazole 20 mg PO BID 12/07/14 [History] SitaGLIPtin [Januvia] 25 mg PO DAILY 12/07/14 [History] Warfarin [Coumadin] 1.5 mg PO ASDIRECTED 11/18/16 [History] Metoprolol Succinate 100 mg PO DAILY@1700 11/20/16 [History] Calcitriol [Rocaltrol] 0.25 mcg PO MOWEFR 12/01/16 [History] Cholecalciferol (Vitamin D3) [Vitamin D3] 1,000 unit PO DAILY 12/01/16 [History] Metolazone [Zaroxolyn] 2.5 tab PO ASDIRECTED PRN 12/01/16 [History] Albuterol/Ipratropium [DuoNeb 3.0-0.5 MG/3 ML] 3 ml INH QID 12/26/16 [History] Bumetanide [Bumex] 2 mg PO BID@0800,1700 12/26/16 [History] L Acidophil/B Lactis/B Longum [Florajen3] 1 cap PO DAILY 12/26/16 [History] Sucralfate [Carafate] 1 gm PO BID PRN 12/26/16 [History] Magnesium Chloride [Mag-64] 128 mg PO BID 02/15/17 [History] Past Medical History HEENT History: Reports: Impaired Vision Cardiovascular History: Reports: Afib, Aneurysm, CAD, Heart Failure, High Cholesterol, Hypertension Other Cardiovascular History: converted on metoprolol Respiratory History: Reports: COPD Other Respiratory History: Uses O2 @ hs. 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 Endocrine/Metabolic History: Reports: Diabetes, Type II Hematologic History: Reports: Iron Deficiency, Other (See Below) Other Hematologic History: is on Coumadin - Infectious Disease History Infectious Disease History: Reports: Chicken Pox, Measles, Mumps - Past Surgical History HEENT Surgical History: Reports: Cataract Surgery GI Surgical History: Reports: Hernia Repair/Other Social & Family History - Family History Family Medical History: Noncontributory - Tobacco Use Smoking Status *Q: Current Every Day Smoker Years of Tobacco use: 40 Packs/Tins Daily: 0.5 Used Tobacco, but Quit: No Second Hand Smoke Exposure: Yes - Caffeine Use Caffeine Use: Reports: Coffee - Alcohol Use Days Per Week of Alcohol Use: 0 - Recreational Drug Use Recreational Drug Use: No ED ROS GENERAL - Review of Systems Review Of Systems: ROS reveals no pertinent complaints other than HPI. ED EXAM, RENAL/ - Physical Exam Exam: See Below Exam Limited By: No Limitations General Appearance: Alert, WD/WN, No Apparent Distress Ears: Normal External Exam Nose: Normal Inspection Throat/Mouth: Normal Inspection, Normal Voice, No Airway Compromise Head: Normocephalic Neck: Normal Inspection, Supple Respiratory/Chest: No Respiratory Distress, No Accessory Muscle Use, Decreased Breath Sounds Cardiovascular: Regular Rate, Rhythm GI/Abdominal: Normal Bowel Sounds, Soft, Non-Tender, No Organomegaly, No Distention Back Exam: Normal Inspection Neurological: Alert, Oriented, CN II-XII Intact, No Motor/Sensory Deficits Psychiatric: Flat Affect Skin Exam: Warm, Dry Lymphatic: No Adenopathy Course - Vital Signs Text/Narrative:: Following assession at the [facility] ED, Matt was administered MgS04 2 gm over 1 hr. A follow up Mg 3.4 meq/l. He was discharged in stable condition. Last Recorded V/S: Last Vital Signs Temp 36.3 C 03/14/17 23:22 Pulse 94 03/14/17 23:22 Resp 18 03/14/17 23:22 BP 135/71 03/14/17 23:22 Pulse Ox 97 03/14/17 23:22 - Orders/Labs/Meds Orders: Active Orders 24 hr Category Date Time Status Sodium Chloride 0.9% [Normal Saline] 250 ml Med 03/14/17 23:45 Active IV ASDIRECTED Sodium Chloride 0.9% [Saline Flush] Med 03/14/17 22:41 Active 10 ml FLUSH ASDIRECTED PRN Peripheral IV Insertion Adult [OM.PC] Routine Oth 03/14/17 22:41 Ordered Medication Orders Sodium Chloride (Normal Saline) 250 mls @ 50 mls/hr IV ASDIRECTED JENNI Last Admin: 03/14/17 23:51 Dose: 50 mls/hr Sodium Chloride (Saline Flush) 10 ml FLUSH ASDIRECTED PRN PRN Reason: Keep Vein Open Last Admin: 03/14/17 23:45 Dose: 10 ml Labs: Laboratory Tests 03/15/17 Range/Units 00:42 Potassium 3.4 L (3.5-5.3) mmol/L Magnesium 2.2 (1.8-2.5) mg/dL Meds: Medications Generic Name Dose Route Start Last Admin Trade Name Freq PRN Reason Stop Dose Admin Sodium Chloride 250 mls @ 50 mls/hr 03/14/17 23:45 03/14/17 23:51 Normal Saline IV 50 mls/hr ASDIRECTED JENNI Administration Sodium Chloride 10 ml 03/14/17 22:41 03/14/17 23:45 Saline Flush FLUSH 10 ml ASDIRECTED PRN Administration Keep Vein Open Discontinued Medications Generic Name Dose Route Start Last Admin Trade Name Freq PRN Reason Stop Dose Admin Magnesium Sulfate 2 gm/ Premix 50 mls @ 150 mls/hr 03/14/17 22:41 03/14/17 23 :55 IV 03/14/17 23:00 150 mls/hr ONETIME ONE Administration Departure - Departure Time of Disposition: 01:32 Disposition: Home, Self-Care 01 Condition: Fair Clinical Impression: Hypomagnesemia - Discharge Information - Problem List & Annotations (1) Hypomagnesemia SNOMED Code(s): 094676363 Code(s): E83.42 - HYPOMAGNESEMIA Status: Acute Current Visit: Yes Annotation/Comment:: Follow up with consultants in [place], [place]. - Problem List Review Problem List Initiated/Reviewed/Updated: Yes - My Orders Last 24 Hours: My Active Orders 03/14/17 22:41 Sodium Chloride 0.9% [Saline Flush] 10 ml FLUSH ASDIRECTED PRN Peripheral IV Insertion Adult [OM.PC] Routine 03/14/17 23:45 Sodium Chloride 0.9% [Normal Saline] 250 ml IV ASDIRECTED - Assessment/Plan Last 24 Hours: My Active Orders 03/14/17 22:41 Sodium Chloride 0.9% [Saline Flush] 10 ml FLUSH ASDIRECTED PRN Peripheral IV Insertion Adult [OM.PC] Routine 03/14/17 23:45 Sodium Chloride 0.9% [Normal Saline] 250 ml IV ASDIRECTED Plan: Follow up with providers in [place], [place].
[2017-03-14] MEDS ORDERED: Sodium Chloride 0.9% 250 ML IV SCH (23:45)
[2017-03-15 01:51] VITALS: BP 126/87
== END 2017-03-15 01:45 | disposition home or self-care (01) ==
LOC: FB.ED 22:36
DX: E83.42 Hypomagnesemia (principal); N18.4 Chronic kidney disease, stage 4 (severe); I50.9 Heart failure, unspecified; E78.00 Pure hypercholesterolemia, unspecified; I48.91 Unspecified atrial fibrillation; J44.9 Chronic obstructive pulmonary disease, unspecified; E11.9 Type 2 diabetes mellitus without complications; F17.210 Nicotine dependence, cigarettes, uncomplicated; Z79.899 Other long term (current) drug therapy; Z86.69 Personal history of other diseases of the nervous system and sense organs
CPT/HCPCS: 36415; 83735; 84132; 96361; 96365; 99284; J3475; J7050

== ENCOUNTER 2017-04-20 20:14 | Emergency (ER) | payer MEDICAID ==
[2017-04-20 21:41] VITALS: BP 120/63
--- NOTE | 2017-04-21 02:08 | ER ---
DATE SEEN: 04/20/2017 REASON FOR VISIT: Rectal bleeding. HISTORY OF PRESENT ILLNESS: This is a 57-year-old male, brought in from home health because he had 2 stools that were bloody. He had diarrhea most of the day, but the last 2 stools appeared bloody and he decided to have them checked out. He denies any pain, fever, or chills. No nausea or vomiting. PAST MEDICAL HISTORY: 1. TIAs. 2. CHF. 3. Atrial fibrillation, currently on Coumadin. 4. Type 2 diabetes. 5. CKD. ALLERGIES: Reviewed. MEDICATIONS: Reviewed. PHYSICAL EXAMINATION: GENERAL: He is not in distress. He is well nourished. VITAL SIGNS: His blood pressure is 110/63, pulse 77, and oxygenation 98% on room air. ENT: Negative. CARDIOVASCULAR: Normal S1, S2. RESPIRATORY SYSTEM: Rhonchi bilaterally. No edema. ABDOMEN: Soft with huge reducible hernia. RECTAL: Revealed no occult blood in the stool. LABORATORY STUDIES: Normal white cell count and hemoglobin. Creatinine 2.9 chronic. IMPRESSION: Bright red blood per rectum. PLAN: Plan is to continue Coumadin. INR today was 1.6. Follow up with PCP. Drink fluids. Return to the ED with any worsening symptoms. Time seen was 9:30 p.m. /[id number] SANTIAGO/NAZARIO
== END 2017-04-20 21:41 | disposition home or self-care (01) ==
LOC: FB.ED 20:14
DX: K62.5 Hemorrhage of anus and rectum (principal); I50.9 Heart failure, unspecified; I48.91 Unspecified atrial fibrillation; E11.22 Type 2 diabetes mellitus with diabetic chronic kidney disease; Z86.73 Personal history of transient ischemic attack (TIA), and cerebral infarction without residual deficits
CPT/HCPCS: 36415; 80053; 82272; 85025; 85610; 86850; 86900; 86901; 99284

== ENCOUNTER 2017-12-11 10:27 | Inpatient (IN) | payer OTHER ==
[2017-12-11] MEDS ORDERED: Albuterol/Ipratropium 3.0-0.5 MG/3 ML Neb Soln *PTOM INH PRN (11:52)
[2017-12-11] MEDS ORDERED: Morphine Oral Concentrate 20 MG/ML 30 ML Bottle *PTOM SL PRN (11:53)
[2017-12-11] MEDS ORDERED: Scopolamine 1.5 MG Transdermal Patch *PTOM TOP PRN (11:54)
[2017-12-11] MEDS ORDERED: Hyoscyamine 0.125 MG Tab.SL *PTOM PO PRN (11:55)
[2017-12-11] MEDS ORDERED: Hyoscyamine 0.125 MG Tab.SL *PTOM PRN (11:56)
[2017-12-11] MEDS ORDERED: Nicotine 21 MG/24 Hr Patch *PTOM TRDERM PRN (11:56)
[2017-12-12 11:08] VITALS: BP 112/56
--- NOTE | 2017-12-12 16:34 | PCM.SN ---
- Free Text/Narrative Note: Mr. Rae was admitted temporarily their hospice respite program until able to be transferred to [facility]. No concerns per nursing hospice. They will continue to write orders and provide care as appropriate. I' m available for any concerns.
== END 2017-12-12 12:25 | DRG 951 ==
LOC: FB.MS 10:59
PROVIDERS: ADMIT Family Medicine; ATTEND Family Medicine
DX: Z75.5 Holiday relief care (principal); Z51.5 Encounter for palliative care; Z66 Do not resuscitate
CPT/HCPCS: 94640; A9270-GY; J7620; Q5005